=== PATIENT | female | born 1995 | race Caucasian/White ===

== ENCOUNTER 2024-02-21 07:21 | Day surgery (SDC) | payer MEDICAID ==
[2024-02-17 15:43] LABS: BASOPHILS # (AUTO) 0.1 X10'3 (0-0.2); BASOPHILS % (AUTO) 0.6 % (0-1); EOSINOPHILS # (AUTO) 0.2 X10'3 (0-0.9); EOSINOPHILS % (AUTO) 2.6 % (0-6); LYMPHOCYTES # (AUTO) 2.4 X10'3 (1.1-4.8); LYMPHOCYTES % (AUTO) 28.9 % (21-51); MEAN CORPUSCULAR HEMOGLOBIN 28.6 PG (27.0-31.0); MEAN CORPUSCULAR HGB CONC 32.8 g/dL (33.0-36.5); MEAN CORPUSCULAR VOLUME 87.1 FL (78-98); MEAN PLATELET VOLUME 8.5 FL (7.4-10.4); MONOCYTES # (AUTO) 0.4 X10'3 (0-0.9); MONOCYTES % (AUTO) 5.1 % (2-12); NEUTROPHILS # (AUTO) 5.1 X10'3 (1.8-7.7); NEUTROPHILS % (AUTO) 62.8 % (42-75); PRE OP HEMATOCRIT 41.4 % (35.0-45.0); PRE OP HEMOGLOBIN 13.6 g/dL (12.0-16.0); PRE OP PLATELET COUNT 310 X10'3 (140-440); PRE OP WHITE BLOOD COUNT 8.2 10'3 (4.8-10.8); RED BLOOD COUNT 4.75 X10'6 (4.20-5.60); RED CELL DISTRIBUTION WIDTH 12.9 % (11.5-14.5)
[2024-02-17 15:54] LABS: HCG SERUM QL NEGATIVE
[2024-02-17 16:02] LABS: ALBUMIN 3.8 G/DL (3.4-5.0); ALBUMIN/GLOBULIN RATIO 0.8 (1.1-1.5); ALKALINE PHOSPHATASE 66 IU/L (46-116); BLOOD UREA NITROGEN 14 MG/DL (7-18); BUN/CREATININE RATIO 16.7 (10.0-20.0); CALCIUM 9.1 MG/DL (8.5-10.1); CHLORIDE 103 MMOL/L (99-107); CREATININE 0.84 MG/DL (0.40-0.90); PRE OP ALT 21 U/L (30-65); PRE OP ANION GAP 10 (8-16); PRE OP AST 14 U/L (10-37); PRE OP BILIRUB, TOTAL 0.2 MG/DL (0.0-1.0); PRE OP GLUCOSE 93 MG/DL (70-104); PRE OP POTASSIUM 4.1 MMOL/L (3.4-5.1); PRE OP SODIUM 139 MMOL/L (135-145); TOTAL CARBON DIOXIDE 26.2 MMOL/L (24-32); TOTAL PROTEIN 8.3 G/DL (6.4-8.2); eGFR 82 ML/MIN
[~2024-02-21] VITALS: Ht 165.1 cm; Wt 83.2 kg
[~2024-02-21 07:21] MED LIST: ETHI1TAB18 PO
[2024-02-21] MEDS: famotidine 20mg tablet PO ONE (08:13)
[2024-02-21] MEDS: ringers solution, lacted 1,000 ML IV SCH ×2 (08:14→10:15)
[2024-02-21] MEDS: levoFLOXACIN-Levaquin 500mg/D5 100 ML IV ONE (08:14)
[2024-02-21] MEDS ORDERED: BUPIVAcaine/PF 2.5mg/ml (0.25%) 10ml vial ONE (08:49)
[2024-02-21] MEDS ORDERED: LIDOcaine 1% (10mg/ml)w/preservative inj. 20ml MDV ONE (08:49)
[2024-02-21] MEDS ORDERED: morphine 4 MG/ML inj SYRINge IV PRN (08:50)
[2024-02-21] MEDS ORDERED: morphine 2 MG/ML inj. syringe IV PRN (08:50)
[2024-02-21] MEDS ORDERED: proCHLORperazine 10 MG/2 ml inj IV PRN (08:50)
[2024-02-21] MEDS ORDERED: meperidine/PF 25mg/ml syringe IV PRN ×3 (08:50)
[2024-02-21] MEDS ORDERED: ondansetron/PF 4mg/2ml inj IV PRN (08:50)
[2024-02-21] MEDS ORDERED: sevoflurane 250ml liquid IH ONE (08:58)
[2024-02-21 09:00] VITALS: BP 121/66; PULSE 68; RESP 16; TEMP 98.3; O2SAT 98
[2024-02-21] MEDS ORDERED: fentaNYL/PF 50MCG/1 ML 2ML syringe ONE (09:02)
[2024-02-21] MEDS ORDERED: propofol inj 20 ML IV ONE (09:03)
[2024-02-21] MEDS ORDERED: midazolam 1 mg/ML 2ml injection ONE (09:03)
[2024-02-21] MEDS ORDERED: ondansetron/PF 4mg/2ml inj ONE (09:41)
[2024-02-21] MEDS ORDERED: dexamethasone sod phosphate 4mg/ml inj. ONE (09:41)
[2024-02-21 09:51] VITALS: BP 117/100; PULSE 84; RESP 16; O2SAT 100
[2024-02-21 10:00] VITALS: BP 119/86; PULSE 71; RESP 16; O2SAT 99
[2024-02-21 10:10] VITALS: BP 114/80; PULSE 70; RESP 16; O2SAT 100
== END 2024-02-21 10:31 | disposition home or self-care (01) ==
LOC: PAS 07:21
PROVIDERS: ATTEND Surgery
DX: R92.8 Other abnormal and inconclusive findings on diagnostic imaging of breast (principal); N60.11 Diffuse cystic mastopathy of right breast; D24.2 Benign neoplasm of left breast; N60.12 Diffuse cystic mastopathy of left breast; Z79.899 Other long term (current) drug therapy; Z88.0 Allergy status to penicillin
CPT/HCPCS: 19301; 36415; 80053; 82948; 84703; 85025; J1100; J1956; J2250; J2405; J2704; J3010; J3490; J7030; J7120; Z7506; Z7512; A4215; A4618; A6449; A7000